=== PATIENT | male | born 1960 | race African-American/Black ===

== ENCOUNTER 2017-05-09 09:22 | Inpatient (IN) | payer MEDICAID ==
[2017-05-09] MEDS ORDERED: ONDANSETRON 4 MG INJ (09:49)
[2017-05-09] MEDS ORDERED: ALBUTEROL 0.5% (NEB) 2.5 MG/0.5 ML AMP (09:50)
[2017-05-09] MEDS ORDERED: IPRATROPIUM (NEB) 0.5 MG/2.5 ML AMP (09:50)
[2017-05-09] MEDS: ONDANSETRON 4 MG INJ IV (09:55)
[2017-05-09] MEDS: SOD CHLORIDE 0.9% 1,000 ML IV (09:55)
[2017-05-09] MEDS: IPRATROPIUM (NEB) 0.5 MG/2.5 ML AMP INH (10:02)
[2017-05-09] MEDS: ALBUTEROL 0.5% (NEB) 2.5 MG/0.5 ML AMP INH (10:03)
[2017-05-09 10:35] LABS: ADD MAN DIFF? NO
[2017-05-09] MEDS: METHYLPREDNISOLONE 125 MG INJ IV (10:39)
[2017-05-09] MEDS: LEVOFLOXACIN 750MG/D5W (PMX) 150 ML IVPB (10:40)
[2017-05-09 10:41] LABS: BASOPHIL # 0.1 10^3/ul (0.0-0.1); BASOPHILS % 0.8 % (0.0-2.0); EOSINOPHILS # 0.3 10^3/ul (0.0-0.5); EOSINOPHILS % 1.9 % (0.0-7.0); HEMATOCRIT 43.5 % (42.0-52.0); HEMOGLOBIN 13.8 g/dl (14.0-18.0); LYMPHOCYTES # 4.2 10^3/ul (0.8-2.9); LYMPHOCYTES % 23.7 % (15.0-51.0); MEAN CORPUSCULAR HEMOGLOBIN 31.4 pg (29.0-33.0); MEAN CORPUSCULAR HGB CONC 31.7 g/dl (32.0-37.0); MEAN CORPUSCULAR VOLUME 99.1 fl (82.0-101.0); MEAN PLATELET VOLUME 10.4 fl (7.4-10.4); MONOCYTE # 1.3 10^3/ul (0.3-0.9); MONOCYTES % 7.4 % (0.0-11.0); NEUTROPHIL # 11.5 10^3/ul (1.6-7.5); NEUTROPHILS % 65.2 % (39.0-77.0); PLATELET COUNT 521 10^3/UL (140-415); RED BLOOD COUNT 4.39 10^6/ul (4.70-6.10); RED CELL DISTRIBUTION WIDTH 13.2 % (11.5-14.5)
[2017-05-09 10:41] LABS: WHITE BLOOD COUNT 17.7 10^3/ul (4.8-10.8)
[2017-05-09 11:04] LABS: INR 1.01; PROTIME 13.4 Sec (11.9-14.9)
[2017-05-09 11:08] LABS: ALANINE AMINOTRANSFERASE 62 IU/L (13-69); ALBUMIN 4.2 g/dl (3.3-4.9); ALBUMIN/GLOBULIN RATIO 1.07; ALKALINE PHOSPHATASE 236 IU/L (42-121); ANION GAP 12 (8-16); ASPARTATE AMINO TRANSFERASE 50 IU/L (15-46); BLOOD UREA NITROGEN 16 mg/dl (7-20); CALCIUM 8.9 mg/dl (8.4-10.2); CARBON DIOXIDE 29 mmol/L (21-31); CHLORIDE 107 mmol/L (97-110); CREATININE 0.59 mg/dl (0.61-1.24); GLUCOSE 145 mg/dl (70-220); LIPASE 64 U/L (23-300); SODIUM 144 mmol/L (135-144); TOTAL PROTEIN 8.1 g/dl (6.1-8.1)
[2017-05-09 11:20] LABS: TROPONIN-I < 0.012 ng/ml (0.00-0.12)
[2017-05-09] MEDS: LIDOCAINE 2% VISC 15 ML CUP PO (11:58)
[2017-05-09] MEDS ORDERED: FENTAnyl 50 MCG/ML VIAL (14:13)
[2017-05-09] MEDS ORDERED: LIDOCAINE 1%/EPI 30 ML INJ (14:16)
[2017-05-09] MEDS: LIDOCAINE 1%/EPI 30 ML INJ INJ (14:22)
[2017-05-09] MEDS ORDERED: ROCURONIUM 50 MG INJ (15:06)
[2017-05-09] MEDS ORDERED: DIPHENHYDRAMINE 50 MG INJ IV (15:30)
[2017-05-09] MEDS ORDERED: MIDAZOLAM 1 MG/ML 2 ML INJ IV (15:30)
[2017-05-09] MEDS ORDERED: ONDANSETRON 4 MG INJ IV (15:30)
[2017-05-09] MEDS ORDERED: LORAZEPAM 2 MG INJ IV (15:30)
[2017-05-09] MEDS ORDERED: HYDROmorphONE (0.2 MG/ML) 10ML SYG IV ×2 (15:30)
[2017-05-09] MEDS: FENTAnyl 50 MCG/ML VIAL IV (15:55)
[2017-05-09 16:30] LABS: HEPATITIS B SURFACE ANTIGEN NEGATIVE (NEGATIVE)
[2017-05-09 16:47] LABS: HEPATITIS B SURFACE ANTIBODY NEGATIVE (NEGATIVE)
[2017-05-09 16:47] LABS: HEPATITIS C VIRAL ANTIBODY NEGATIVE (NEGATIVE)
[2017-05-09 16:50] LABS: HIV 1&2 ANTIBODY NEGATIVE (NEGATIVE)
[2017-05-09] MEDS ORDERED: ALBUTEROL 0.083% (NEB) 2.5 MG/3 ML AMP NEB (17:00)
[2017-05-09] MEDS: VANCOMYCIN 1 GM (PMX) 250 ML IVPB (19:07)
[2017-05-09] MEDS: SCOPOLAMINE 1.5 MG PATCH TRANSDERM (19:20)
[2017-05-09 19:40] LABS: ADD UMIC YES; UR ASCORBIC ACID 40 mg/dL (NEGATIVE); UR BILIRUBIN (Dip) NEGATIVE (NEGATIVE); UR BLOOD (Dip) NEGATIVE (NEGATIVE); UR CLARITY CLEAR (CLEAR); UR COLOR YELLOW (YELLOW); UR GLUCOSE (Dip) NEGATIVE (NEGATIVE); UR KETONES (Dip) NEGATIVE (NEGATIVE); UR LEUKOCYTE ESTERASE (Dip) NEGATIVE Leu/ul (NEGATIVE); UR NITRITE (Dip) NEGATIVE (NEGATIVE); UR RBC 9 /HPF (0-5); UR SPECIFIC GRAVITY (Dip) 1.015 (1.003-1.030); UR TOTAL PROTEIN (Dip) 1+ mg/dl (NEGATIVE); UR UROBILINOGEN (Dip) NEGATIVE (NEGATIVE); UR WBC 6 /HPF (0-5)
[2017-05-09] MEDS: CHLORHEXIDINE GLUCONATE 15 ML UD CUP MM (20:40)
[2017-05-09] MEDS: PHENYTOIN (100 MG/4 ML) CUP GTB (20:40)
[2017-05-09] MEDS: METOCLOPRAMIDE 10 MG TAB GTB (20:41)
[2017-05-09] MEDS: LACTOBACILLUS RHAMNOSUS CAP PO (22:31)
[2017-05-09] MEDS: BALSAM PERU/CASTOR OIL 60 GM TUBE TOP (22:31)
[2017-05-10] MEDS: LANSOPRAZOLE 30 MG CAP GTB (05:26)
[2017-05-10 06:10] LABS: ADD MAN DIFF? NO
[2017-05-10 06:23] LABS: ABNORMAL IP MESSAGE 1; BASOPHIL # 0.1 10^3/ul (0.0-0.1); BASOPHILS % 0.7 % (0.0-2.0); EOSINOPHILS # 0.1 10^3/ul (0.0-0.5); EOSINOPHILS % 0.7 % (0.0-7.0); HEMATOCRIT 39.8 % (42.0-52.0); HEMOGLOBIN 12.8 g/dl (14.0-18.0); LYMPHOCYTES # 1.6 10^3/ul (0.8-2.9); LYMPHOCYTES % 11.9 % (15.0-51.0); MEAN CORPUSCULAR HEMOGLOBIN 31.8 pg (29.0-33.0); MEAN CORPUSCULAR HGB CONC 32.2 g/dl (32.0-37.0); MEAN PLATELET VOLUME 9.5 fl (7.4-10.4); MONOCYTES % 14.6 % (0.0-11.0); NEUTROPHIL # 9.8 10^3/ul (1.6-7.5); NEUTROPHILS % 71.3 % (39.0-77.0); PLATELET COUNT 386 10^3/UL (140-415); POSITIVE DIFF @See below; RED BLOOD COUNT 4.02 10^6/ul (4.70-6.10); RED CELL DISTRIBUTION WIDTH 13.2 % (11.5-14.5)
[2017-05-10 06:23] LABS: WHITE BLOOD COUNT 13.8 10^3/ul (4.8-10.8)
[2017-05-10 06:54] LABS: ALANINE AMINOTRANSFERASE 75 IU/L (13-69); ALBUMIN 3.6 g/dl (3.3-4.9); ALBUMIN/GLOBULIN RATIO 0.92; ALKALINE PHOSPHATASE 192 IU/L (42-121); ANION GAP 12 (8-16); ASPARTATE AMINO TRANSFERASE 62 IU/L (15-46); BILIRUBIN,INDIRECT 0.4 mg/dl (0-1.1); BILIRUBIN,TOTAL 0.4 mg/dl (0.2-1.3); BLOOD UREA NITROGEN 16 mg/dl (7-20); CALCIUM 8.6 mg/dl (8.4-10.2); CARBON DIOXIDE 28 mmol/L (21-31); CHLORIDE 109 mmol/L (97-110); CREATININE 0.89 mg/dl (0.61-1.24); GLUCOSE 112 mg/dl (70-220); POTASSIUM 3.9 mmol/L (3.5-5.1); SODIUM 145 mmol/L (135-144); TOTAL PROTEIN 7.5 g/dl (6.1-8.1)
[2017-05-10 07:31] LABS: MAGNESIUM 2.1 mg/dl (1.7-2.5)
[2017-05-10] MEDS: METOCLOPRAMIDE 10 MG TAB GTB ×3 (08:32→21:38)
[2017-05-10] MEDS: FERROUS SULFATE 60 MG/ML 5ML CUP GTB (08:32)
[2017-05-10] MEDS: FLUDROCORTISONE 0.1 MG TAB GTB (08:32)
[2017-05-10] MEDS: MULTIVITAMINS THERAPEUTIC TAB GTB (08:32)
[2017-05-10] MEDS: CHLORHEXIDINE GLUCONATE 15 ML UD CUP MM ×2 (08:32→21:38)
[2017-05-10] MEDS: LACTOBACILLUS RHAMNOSUS CAP PO ×2 (08:32→21:39)
[2017-05-10] MEDS: BALSAM PERU/CASTOR OIL 60 GM TUBE TOP (08:33)
[2017-05-10] MEDS: PHENYTOIN (100 MG/4 ML) CUP GTB (08:33)
[2017-05-10] MEDS ORDERED: FERROUS SULFATE 220 MG/5 ML ML GTB (09:00)
[2017-05-10] MEDS ORDERED: NON-FORMULARY/PATIENT OWN MED (Cran/Vitc/Mannose/Inulin/Brom (Uti-Stat Liquid) 3,875 MG) GTB (09:00)
[2017-05-11] MEDS: PHENYTOIN (100 MG/4 ML) CUP GTB ×3 (02:03→20:16)
[2017-05-11] MEDS: LANSOPRAZOLE 30 MG CAP GTB (05:17)
[2017-05-11 05:37] LABS: ADD MAN DIFF? NO
[2017-05-11 05:47] LABS: ABNORMAL IP MESSAGE 1; BASOPHIL # 0.1 10^3/ul (0.0-0.1); BASOPHILS % 0.5 % (0.0-2.0); EOSINOPHILS # 0.3 10^3/ul (0.0-0.5); EOSINOPHILS % 2.1 % (0.0-7.0); HEMATOCRIT 35.4 % (42.0-52.0); HEMOGLOBIN 11.2 g/dl (14.0-18.0); LYMPHOCYTES # 1.9 10^3/ul (0.8-2.9); LYMPHOCYTES % 14.4 % (15.0-51.0); MEAN CORPUSCULAR HEMOGLOBIN 31.6 pg (29.0-33.0); MEAN CORPUSCULAR HGB CONC 31.6 g/dl (32.0-37.0); MEAN PLATELET VOLUME 9.9 fl (7.4-10.4); MONOCYTE # 1.6 10^3/ul (0.3-0.9); MONOCYTES % 11.8 % (0.0-11.0); NEUTROPHIL # 9.3 10^3/ul (1.6-7.5); NEUTROPHILS % 70.3 % (39.0-77.0); PLATELET COUNT 374 10^3/UL (140-415); POSITIVE DIFF @See below; RED BLOOD COUNT 3.54 10^6/ul (4.70-6.10); RED CELL DISTRIBUTION WIDTH 13.5 % (11.5-14.5)
[2017-05-11 05:47] LABS: WHITE BLOOD COUNT 13.2 10^3/ul (4.8-10.8)
[2017-05-11 06:27] LABS: ALANINE AMINOTRANSFERASE 112 IU/L (13-69); ALBUMIN 3.4 g/dl (3.3-4.9); ALBUMIN/GLOBULIN RATIO 0.89; ALKALINE PHOSPHATASE 185 IU/L (42-121); ANION GAP 11 (8-16); ASPARTATE AMINO TRANSFERASE 96 IU/L (15-46); BILIRUBIN,INDIRECT 0.1 mg/dl (0-1.1); BILIRUBIN,TOTAL 0.1 mg/dl (0.2-1.3); BLOOD UREA NITROGEN 16 mg/dl (7-20); CARBON DIOXIDE 28 mmol/L (21-31); CHLORIDE 110 mmol/L (97-110); CREATININE 0.76 mg/dl (0.61-1.24); GLUCOSE 127 mg/dl (70-220); POTASSIUM 3.7 mmol/L (3.5-5.1); SODIUM 145 mmol/L (135-144); TOTAL PROTEIN 7.2 g/dl (6.1-8.1)
[2017-05-11] MEDS: FERROUS SULFATE 60 MG/ML 5ML CUP GTB (08:56)
[2017-05-11] MEDS: FLUDROCORTISONE 0.1 MG TAB GTB (08:57)
[2017-05-11] MEDS: MULTIVITAMINS THERAPEUTIC TAB GTB (08:57)
[2017-05-11] MEDS: ASCORBIC ACID 500 MG TAB GTB (08:57)
[2017-05-11] MEDS: CHLORHEXIDINE GLUCONATE 15 ML UD CUP MM ×2 (08:57→20:16)
[2017-05-11] MEDS: METOCLOPRAMIDE 10 MG TAB GTB ×3 (08:57→20:21)
[2017-05-11] MEDS: LACTOBACILLUS RHAMNOSUS CAP PO ×2 (08:57→20:20)
[2017-05-11] MEDS: BALSAM PERU/CASTOR OIL 60 GM TUBE TOP (08:58)
[2017-05-12] MEDS: LANSOPRAZOLE 30 MG CAP GTB (05:16)
[2017-05-12 06:24] LABS: ADD MAN DIFF? NO
[2017-05-12 06:33] LABS: BASOPHIL # 0.1 10^3/ul (0.0-0.1); BASOPHILS % 0.7 % (0.0-2.0); EOSINOPHILS # 0.3 10^3/ul (0.0-0.5); EOSINOPHILS % 3.2 % (0.0-7.0); HEMATOCRIT 34.3 % (42.0-52.0); HEMOGLOBIN 10.8 g/dl (14.0-18.0); LYMPHOCYTES # 1.6 10^3/ul (0.8-2.9); LYMPHOCYTES % 15.9 % (15.0-51.0); MEAN CORPUSCULAR HEMOGLOBIN 31.5 pg (29.0-33.0); MEAN CORPUSCULAR HGB CONC 31.5 g/dl (32.0-37.0); MEAN PLATELET VOLUME 9.9 fl (7.4-10.4); MONOCYTE # 1.1 10^3/ul (0.3-0.9); MONOCYTES % 11.3 % (0.0-11.0); NEUTROPHIL # 6.8 10^3/ul (1.6-7.5); NEUTROPHILS % 68.5 % (39.0-77.0); PLATELET COUNT 339 10^3/UL (140-415); RED BLOOD COUNT 3.43 10^6/ul (4.70-6.10); RED CELL DISTRIBUTION WIDTH 13.2 % (11.5-14.5)
[2017-05-12 06:33] LABS: WHITE BLOOD COUNT 9.9 10^3/ul (4.8-10.8)
[2017-05-12 07:04] LABS: ANION GAP 10 (8-16); BLOOD UREA NITROGEN 14 mg/dl (7-20); CALCIUM 9.1 mg/dl (8.4-10.2); CARBON DIOXIDE 31 mmol/L (21-31); CHLORIDE 109 mmol/L (97-110); CREATININE 0.65 mg/dl (0.61-1.24); GLUCOSE 121 mg/dl (70-220); MAGNESIUM 2.2 mg/dl (1.7-2.5); PHOSPHORUS 2.9 mg/dl (2.5-4.9); POTASSIUM 3.6 mmol/L (3.5-5.1); SODIUM 146 mmol/L (135-144)
[2017-05-12] MEDS: MULTIVITAMINS THERAPEUTIC TAB GTB (08:38)
[2017-05-12] MEDS: LACTOBACILLUS RHAMNOSUS CAP PO (08:38)
[2017-05-12] MEDS: METOCLOPRAMIDE 10 MG TAB GTB ×2 (08:38→13:00)
[2017-05-12] MEDS: CHLORHEXIDINE GLUCONATE 15 ML UD CUP MM (08:38)
[2017-05-12] MEDS: FERROUS SULFATE 60 MG/ML 5ML CUP GTB (08:38)
[2017-05-12] MEDS: ASCORBIC ACID 500 MG TAB GTB (08:38)
[2017-05-12] MEDS: FLUDROCORTISONE 0.1 MG TAB GTB (08:38)
[2017-05-12] MEDS: PHENYTOIN (100 MG/4 ML) CUP GTB (08:38)
[2017-05-12] MEDS: BALSAM PERU/CASTOR OIL 60 GM TUBE TOP (08:39)
[2017-05-12] MEDS: SCOPOLAMINE 1.5 MG PATCH TRANSDERM (17:37)
== END 2017-05-12 18:59 | DRG 166 ==
LOC: E/R 09:22 → ICU 14:09 → REC 13:19 → ICU 15:44
PROVIDERS: Family Medicine
PROC: 0BW17FZ Revision of Tracheostomy Device in Trachea, Via Natural or Artificial Opening (ICD-10-PCS; principal; 2017-05-09 14:07)
PROC: 5A1945Z Respiratory Ventilation, 24-96 Consecutive Hours (ICD-10-PCS; 2017-05-09 14:07)
DX: J95.03 Malfunction of tracheostomy stoma (principal); J69.0 Pneumonitis due to inhalation of food and vomit; J96.20 Acute and chronic respiratory failure, unspecified whether with hypoxia or hypercapnia; G93.1 Anoxic brain damage, not elsewhere classified; R13.10 Dysphagia, unspecified; R04.2 Hemoptysis; R14.0 Abdominal distension (gaseous); G40.909 Epilepsy, unspecified, not intractable, without status epilepticus; J32.4 Chronic pansinusitis; Z93.1 Gastrostomy status
CPT/HCPCS: 36415; 70490; 71045; 71250; 74176; 78226; 80048; 80053; 81001; 83690; 83735; 84100; 84484; 85025; 85610; 86703; 86706; 86803; 87081; 87340; 93005; 93970; 94002; 94003; 94644; 96374; 96375; 99291-25